=== PATIENT | male | born 1965 | race Caucasian/White ===

== ENCOUNTER 2016-10-12 07:15 | Day surgery (SDC) | payer OTHER ==
[2016-10-11 11:00] VITALS: BMI 21.1
[2016-10-12] VITALS (9 sets, daily range): BP systolic 94–114; BP diastolic 50–64; PULSE 52–68; RESP 14–35; Ht 348 cm; Wt 68.0 kg
[~2016-10-12] VITALS: Ht 348 cm; Wt 68.0 kg
[~2016-10-12 07:15] MED LIST: CEFAZOLIN 1 GM INJ ONE; CEFAZOLIN 2 GM/50 ML (PMX) 50 ML IVPB ONE; SOD CHLORIDE 0.9% 1,000 ML IV SCH
[2016-10-12] MEDS ORDERED: DEXAMETHASONE 4 MG/ML 1 ML INJ ONE (08:50)
[2016-10-12] MEDS ORDERED: PROPOFOL 20 ML ONE (08:50)
[2016-10-12] MEDS ORDERED: FENTAnyl 50 MCG/ML VIAL ONE (08:50)
[2016-10-12] MEDS ORDERED: MIDAZOLAM 1 MG/ML 2 ML INJ ONE (08:50)
[2016-10-12] MEDS ORDERED: ACETAMINOPHEN 1000MG/100ML IV 100 ML ONE (08:50)
[2016-10-12] MEDS ORDERED: LIDOCAINE 1% (MDV) 20 ML INJ ONE (08:50)
[2016-10-12] MEDS ORDERED: ONDANSETRON 4 MG INJ ONE (08:50)
[2016-10-12] MEDS ORDERED: BUPIVACAINE 0.25% (MPF) 30 ML INJ INJ ONE (09:05)
[2016-10-12] MEDS ORDERED: BUPIVACAINE 0.25% (MPF) 30 ML INJ ONE (09:08)
[2016-10-12] MEDS ORDERED: METOCLOPRAMIDE 10 MG INJ IV PRN (09:30)
[2016-10-12] MEDS ORDERED: HYDROmorphONE (0.2 MG/ML) 10ML SYG IV PRN ×3 (09:30)
[2016-10-12] MEDS ORDERED: DIPHENHYDRAMINE 50 MG INJ IV PRN (09:30)
[2016-10-12] MEDS ORDERED: MIDAZOLAM 1 MG/ML 2 ML INJ IV PRN (09:30)
[2016-10-12] MEDS ORDERED: ONDANSETRON 4 MG INJ IV PRN ×2 (09:30→10:00)
--- NOTE | 2016-10-12 09:52 | OPR ---
Date/Time of Note Date/Time of Note DATE: 10/12/16 TIME: 09:37 Operative Report Procedure Date: Oct 12, 2016 Preoperative Diagnosis subcutaneous mass right flank Postoperative Diagnosis fatty subfascial mass right flank Operation Performed Excision, tumor, soft tissue of right flank, subfascial 6 cm Surgeon: KOREY CABRAL DO Anesthesia: general Estimated Blood Loss: minimal Specimens right flank mass Grafts/Implants none Tubes/Drains none Complications: None Pt Condition Post Procedure: stable Disposition: PACU Indications Indication for surgery: Patient has had slowly soft rubbery subcutaneous mass over the right lower rib cage that has become symptomatic. He desires excision. INFORMED CONSENT: Informed verbal consent obtained. Potential complications of surgery explained to patient including, but not limited to: scar formation, infection, bleeding, chronic pain, possible need for further surgery, recurrence. Patient understands and agrees. All questions answered. Patient gave consent and desires to proceed with surgery. The usual risks, benefits and alternatives of surgery were discussed including, but not limited to, bowel, billiary, liver injury, infection, bleeding, scar, need for further surgery, allergy to medicines which may or may not have been previously taken, anesthesia , injury to nerves, arteries, veins or other adjacent organs or structures in the operative field, and the possibility of cardiac, pulmonary, GI, , neurologic, vascular, thromboembolic or other systemic complications.All risks versus benefits have been discussed at length allowing ample opportunity for patient to ask all questions and [S]he indicates they are all answered to his/ her satisfaction. Additional specific risks include but are not limited to: recurrence, pain, infection, inadequate excision, need for re-operation, injury to nerves or surrounding tissues, chronic pain. The patient appear(s) to understand these risks, and informed consent is confirmed. Operative\Procedure Findings fatty 6 cm subfascial mass Procedure Description After time out was performed, site markings verified, and patient identification verified, the area of concern was prepped and draped in standard sterile fashion. A transverse linear incision was made over the mass in the right flank area over the rib cage at the anterior axillary line, and dissection was carried through the subcutaneous tissues with blunt dissection and electrocautery. The mass was fatty in appearance, and under the muscular fascia. The fascia was incised circumferentially, and the mass peeled from the muscle with ease and blunt dissection. The mass was excised in whole. Local anesthetic was administered without reaction. The skin and subcutaneous tissues were re-approximated with absorbable sutures and dermabond was applied. KOREY CABRAL DO Oct 12, 2016 09:48
[2016-10-12] MEDS ORDERED: HYDROCODONE/APAP (5/325) TAB PO PRN ×2 (10:00)
[2016-10-12] MEDS ORDERED: IBUPROFEN 600 MG TAB PO PRN (10:00)
== END 2016-10-12 10:51 | disposition home or self-care (01) ==
LOC: SDS 07:15
PROVIDERS: ATTEND Surgery Trauma Surgery
DX: D17.1 Benign lipomatous neoplasm of skin and subcutaneous tissue of trunk (principal)
CPT/HCPCS: 11406; 88307; J0131; J0690; J1100; J2250; J2405; J3010; Z7512; Z7610